=== PATIENT | female | born 1980 | race Caucasian/White ===

== ENCOUNTER 2021-01-20 22:08 | Emergency (ER) | payer SELFPAY ==
[2021-01-20 22:20] VITALS: BP 175/103; PULSE 132; RESP 20; TEMP 36.9; O2SAT 98; BMI 32.9
[2021-01-20 22:30] VITALS: PULSE 125; O2SAT 95
[2021-01-20 22:49] LABS: RBC Urine None Seen (0-5/HPF)
[2021-01-20 22:51] LABS: Add Manual Diff / Slide Review NO; Basophils Absolute Auto 100 /uL (0-100); Eosinophils Absolute Auto 100 /uL (0-450); Eosinophils Percent Auto 0.8 % (2-4); Hematocrit 36.1 % (36-46); Hemoglobin 11.6 g/dL (12.0-16.0); Lymphocytes Absolute Auto 1800 /uL (1100-4500); Lymphocytes Percent Auto 17.9 % (25-40); Mean Corpuscular Hemoglobin 26.2 PG (26-34); Mean Corpuscular Volume 81.9 fL (80-100); Monocytes Absolute Auto 700 /uL (0-900); Monocytes Percent Auto 7.2 % (3-14); Neutrophils Absolute Auto 7200 /uL (1500-7000); Neutrophils Percent Auto 73.1 % (50-75); Platelet Count 282 X10^3/uL (150-400); Red Blood Cell Count 4.41 X10^6/uL (4.0-5.2); Red Cell Distribution Width 19.7 % (11.6-14.8); White Blood Cell Count 9.9 X10^3/uL (4.5-11.0)
[2021-01-20 22:57] LABS: Bacteria Urine Occasional (0-1); Culture Indicated Urine Cult Not Indicated; Squamous Epithelial Cell Urine 1-5 /HPF (0-5/HPF); WBC Urine 1-5/HPF (0-5/HPF)
[2021-01-20 22:58] LABS: Albumin 4.3 g/dL (3.5-5.0); Albumin Globulin Ratio 1.5 (1.0-2.8); Alkaline Phosphatase 88 U/L (38-126); Aspartate Aminotransferase 39 IU/L (14-36); BUN Creatinine Ratio 13.1 (6-22); Bilirubin Total 0.2 mg/dL (0.2-1.3); Blood Urea Nitrogen 11 mg/dL (7-17); Calcium 9.5 mg/dL (8.4-10.2); Carbon Dioxide 22 mmol/L (22-32); Chloride 102 mmol/L (98-107); Estimated Glomerular Filt Rate > 60.0 mL/min (>60); Globulin 2.9 g/dL (1.7-4.1); Glucose 273 mg/dL (70-100); HEMOLYSIS < 15 (0-50); Lipase 74 U/L (23-300); Potassium 3.8 mmol/L (3.4-5.1); Sodium 134 mmol/L (137-145); Total Protein 7.2 g/dL (6.3-8.2)
[2021-01-20 23:00] VITALS: PULSE 115; O2SAT 95
[2021-01-20 23:15] VITALS: BP 175/103
[2021-01-20 23:16] LABS: Prothrombin Time 11.3 SECONDS (10.1-12.7)
[2021-01-20 23:18] LABS: PTT Partial Thromboplastin Tim 32 SECONDS (26.4-36.2)
[2021-01-20 23:18] LABS: Alanine Aminotransferase 49 IU/L (<35)
[2021-01-20 23:30] VITALS: PULSE 105; O2SAT 96
--- NOTE | 2021-01-20 23:37 | DI.CT.S_ITS ---
PROCEDURE: CT ABDOMEN PELVIS W CON INDICATIONS: RLQ pain worsening over 24hrs TECHNIQUE: After the administration of intravenous contrast, 5 mm thick sections acquired from the diaphragm to the symphysis. 5 mm coronal and sagittal reformats were acquired. For radiation dose reduction, the following was used: automated exposure control, adjustment of mA and/or kV according to patient size. COMPARISON: None. FINDINGS: ABDOMEN: Lung bases: Normal Solid organs: Hepatic steatosis. Gallbladder: Negative Biliary system: Normal Pancreas: Normal Spleen: Normal Adrenal glands: Normal Kidneys: Normal Ureters: Normal Peritoneum and bowel: Stomach: Normal There are mild fluid-filled right lower quadrant small bowel loops however no transition point is seen. A presumed small duodenal diverticulum on image 42/2. No free fluid or air. Appendix is not clearly identified however no suspicious pericecal inflammatory changes are seen.It is probably surgically absent given the appearance on image 77/2. Lymph nodes and vessels: Abdominal nodes: Normal Aorta and IVC: Normal Miscellaneous: Ventral wall: Normal PELVIS: Genitourinary: Bladder is distended otherwise unremarkable. Miscellaneous: Inguinal: Normal Pelvic nodes: Normal Bones: No vertebral body compression fracture. Spondylytic changes and facet arthropathy. IMPRESSION: Appendix not seen probably surgically absent. Elsewhere, no inflammatory changes seen in the right lower quadrant. Hepatic steatosis. Findings concordant with the preliminary study interpretation provided at the time of the exam. Dictated by: Favian Carmichael M.D. on 01/21/2021 at 8:20 Approved by: Favian Carmichael M.D. on 01/21/2021 at 8:28
[2021-01-20] MEDS: HYDROMORPHONE 0.5 MG INJ IV (23:44)
[2021-01-20] MEDS: ONDANSETRON 4 MG/2 ML INJ IV (23:47)
[2021-01-21] VITALS (13 sets, daily range): BP systolic 117–190; BP diastolic 70–97; PULSE 110–128; RESP 20; TEMP 36.4; O2SAT 90–96
[2021-01-21] MEDS: HYDROMORPHONE 1 MG INJ 2 MG IM (00:10)
--- NOTE | 2021-01-21 00:25 | ED_ITS ---
HPI - Abdominal Pain General Chief Complaint: Abdominal Pain Stated Complaint: vomiting and abdominal pain Time Seen by Provider: 01/20/21 23:04 Source: patient Mode of arrival: Ambulatory Limitations: no limitations History of Present Illness HPI narrative: 40-year-old woman with no significant medical history presents with 24 hours of nausea vomiting and increasing abdominal pain initially periumbilical in nail localizing to the right lower quadrant. She has had a history of ovarian cysts and had a laparoscopic surgery a number years ago and may have had an appendectomy with that surgery but she is not entirely clear. She does not describe fevers, chills, cough,palpitations or headaches. She does note that she is slightly dizzy when she stands up and states that she feels she is somewhat dehydrated Related Data Allergies Allergy/AdvReac Type Severity Reaction Status Date / Time NSAIDS (Non-Steroidal Allergy Severe Swelling Verified 01/20/21 22:20 Anti-Inflamma of Lip/Tongue/Throat Penicillins Allergy Intermediate Hives Verified 01/20/21 22:20 Review of Systems Review of Systems Narrative: All systems reviewed and are unremarkable except as noted in the HPI Patient History Medical History (Updated 01/21/21 @ 03:21 by Nina Rey MD) Ovarian cyst Social History Smoking Status: Never smoker Smoking Status: Never smoker alcohol intake frequency: 0-2 drinks per day Exam Narrative Exam Narrative: General: He in moderate distress. Able to give a complete and coherent history. Well-nourished well-developed HEENT: Dry mucous membranes, normal sclera with reactive pupils, Respiratory: Lungs are clear to auscultation, no wheezing no rales no rhonchi. Full and symmetrical air movement Cardiac: Regular rate and rhythm no murmurs no bruits Abdomen: Soft, very tender in the right lower quadrant without rebound or guarding good bowel tones, no flank pain Skin: Warm and dry, no rashes Neurologic: Grossly neurologically intact with no obvious asymmetries or abnormalities Extremities: No trauma, well perfused Psych: Cooperative, appropriate insight and affect Initial Vital Signs Initial Vital Signs: Vital Signs Temperature 98.4 F 01/20/21 22:20 Pulse Rate 132 H 01/20/21 22:20 Respiratory Rate 20 01/20/21 22:20 Blood Pressure 175/103 H 01/20/21 22:20 Pulse Oximetry 98 01/20/21 22:20 Course Orders Ordered: ED Orders 01/20/21 22:15 EKG-12 Lead Routine 01/20/21 22:24 Urine Microscopic Stat 01/20/21 22:40 Complete Blood Count AUTO DIFF Stat Comprehensive Metabolic Panel Stat Lipase Stat 01/20/21 23:00 Partial Thromboplastin Time Stat Prothrombin Time INR Stat 01/20/21 23:37 CT abdomen pelvis w con Stat 01/20/21 23:47 COVID19 - ADMIT (CORPORATE RESPONSIBILITY OFFICER swab/PCR) Stat Hydromorphone HCl (Hydromorphone 0.5 Mg Inj) 0.5 mg IV Q15MIN PRN PRN Reason: Pain, Last Admin: 01/21/21 01:16 Dose: 0.5 mg Documented by: Admin: 01/20/21 23:44 Dose: 0.5 mg Documented by: ERIC Ondansetron HCl (Ondansetron 4 Mg Odt Prepack) 1 bottle MISC SEEINSTR ONE Stop: 01/21/21 03:22 Discontinued Medications Diphenhydramine HCl (Diphenhydramine 50 Mg/Ml Vial) 50 mg IV NOW ONE Stop: 01/21/21 00:32 Last Admin: 01/21/21 00:34 Dose: 50 mg Documented by: AVA Hydromorphone HCl (Hydromorphone 1 Mg Inj) 2 mg IM NOW ONE Stop: 01/21/21 00:01 Last Admin: 01/21/21 00:10 Dose: 2 mg Documented by: ERIC Sodium Chloride (Normal Saline 0.9%) 1,000 mls @ 1,000 mls/hr IV BOLUS ONE Stop: 01/21/21 00:34 Last Infusion: 01/21/21 01:30 Dose: 0 mls/hr Documented by: Admin: 01/21/21 00:36 Dose: 1,000 mls/hr Documented by: AVA Sodium Chloride (Normal Saline 0.9%) 1,000 mls @ 1,000 mls/hr IV BOLUS ONE Stop: 01/21/21 02:01 Last Infusion: 01/21/21 02:38 Dose: 0 mls/hr Documented by: Admin: 01/21/21 01:30 Dose: 1,000 mls/hr Documented by: ERIC Ondansetron HCl (Ondansetron 4 Mg/2 Ml Inj) 4 mg IV NOW ONE Stop: 01/20/21 23:36 Last Admin: 01/20/21 23:47 Dose: 4 mg Documented by: ERIC Ondansetron HCl (Ondansetron 4 Mg/2 Ml Inj) 4 mg IV NOW ONE Stop: 01/21/21 00:38 Last Admin: 01/21/21 02:34 Dose: Not Given Documented by: ERIC Vital Signs Vital signs: Vital Signs - 8 hr 01/20/21 22:20 01/20/21 22:30 01/20/21 23:00 Temperature 98.4 F Pulse Rate 132 H 125 H 115 H Respiratory Rate 20 Blood Pressure 175/103 H Pulse Oximetry 98 95 95 01/20/21 23:15 01/20/21 23:30 01/21/21 00:00 Temperature Pulse Rate 105 H 110 H Respiratory Rate Blood Pressure 175/103 H Pulse Oximetry 96 94 01/21/21 00:32 01/21/21 00:33 01/21/21 00:37 Temperature Pulse Rate 119 H 121 H 115 H Respiratory Rate Blood Pressure 190/89 H 165/92 H Pulse Oximetry 92 92 94 01/21/21 01:00 01/21/21 01:01 01/21/21 01:14 Temperature Pulse Rate 113 H 114 H 128 H Respiratory Rate Blood Pressure 139/91 H 154/97 H Pulse Oximetry 91 94 91 01/21/21 01:30 01/21/21 01:31 01/21/21 02:00 Temperature Pulse Rate 113 H 111 H 115 H Respiratory Rate Blood Pressure 130/70 117/86 Pulse Oximetry 90 L 90 L 91 01/21/21 02:30 01/21/21 02:32 Temperature Pulse Rate 116 H 113 H Respiratory Rate Blood Pressure 130/81 Pulse Oximetry 96 95 MDM - Abdominal Pain Medical Records Attestation: I reviewed the patient's medical records. Lab Data Attestation: I reviewed the patient's lab results. Result diagrams: 01/20/21 22:40 01/20/21 22:40 Labs: Lab Results 03/14/21 03/14/21 03/14/21 Range/Units 22:24 22:40 22:40 WBC 9.9 (4.5-11.0) X10^3/uL RBC 4.41 (4.0-5.2) X10^6/uL Hgb 11.6 L (12.0-16.0) g/dL Hct 36.1 (36-46) % MCV 81.9 (80-100) fL MCH 26.2 (26-34) PG MCHC 32.0 (30-36) % RDW 19.7 H (11.6-14.8) % Plt Count 282 (150-400) X10^3/uL Neut % (Auto) 73.1 (50-75) % Lymph % (Auto) 17.9 L (25-40) % [place] % (Auto) 7.2 (3-14) % Eos % (Auto) 0.8 L (2-4) % Baso % (Auto) 1.0 (0-2) % Neut # (Auto) 7200 H (7491-6297) /uL Lymph # (Auto) 1800 (0683-4386) /uL [place] # (Auto) 700 (0-900) /uL Eos # (Auto) 100 (0-450) /uL Baso # (Auto) 100 (0-100) /uL PT (10.1-12.7) SECONDS INR (0.9-1.3) APTT (26.4-36.2) SECONDS Sodium 134 L (137-145) mmol/L Potassium 3.8 (3.4-5.1) mmol/L Chloride 102 (98-107) mmol/L Carbon Dioxide 22 (22-32) mmol/L BUN 11 (7-17) mg/dL Creatinine 0.84 (0.52-1.04) mg/dL Estimated GFR > 60.0 (>60) mL/min BUN/Creatinine Ratio 13.1 (6-22) Glucose 273 H (70-100) mg/dL Calcium 9.5 (8.4-10.2) mg/dL Total Bilirubin 0.2 (0.2-1.3) mg/dL AST 39 H (14-36) IU/L ALT 49 H (<35) IU/L Alkaline Phosphatase 88 (38-126) U/L Total Protein 7.2 (6.3-8.2) g/dL Albumin 4.3 (3.5-5.0) g/dL Globulin 2.9 (1.7-4.1) g/dL Albumin/Globulin Ratio 1.5 (1.0-2.8) Lipase 74 (23-300) U/L Urine RBC None seen (0-5/HPF) Urine WBC 1-5/hpf (0-5/HPF) Ur Squamous Epith Cells 1-5 /hpf (0-5/HPF) Urine Bacteria Occasional (0-1) (None) Ur Culture Indicated? Cult not indicated SARS-CoV-2 (PCR) (Negative) 01/20/21 01/21/21 Range/Units 23:00 00:20 WBC (4.5-11.0) X10^3/uL RBC (4.0-5.2) X10^6/uL Hgb (12.0-16.0) g/dL Hct (36-46) % MCV (80-100) fL MCH (26-34) PG MCHC (30-36) % RDW (11.6-14.8) % Plt Count (150-400) X10^3/uL Neut % (Auto) (50-75) % Lymph % (Auto) (25-40) % [place] % (Auto) (3-14) % Eos % (Auto) (2-4) % Baso % (Auto) (0-2) % Neut # (Auto) (7495-1554) /uL Lymph # (Auto) (3306-5589) /uL [place] # (Auto) (0-900) /uL Eos # (Auto) (0-450) /uL Baso # (Auto) (0-100) /uL PT 11.3 (10.1-12.7) SECONDS INR 1.0 (0.9-1.3) APTT 32 (26.4-36.2) SECONDS Sodium (137-145) mmol/L Potassium (3.4-5.1) mmol/L Chloride (98-107) mmol/L Carbon Dioxide (22-32) mmol/L BUN (7-17) mg/dL Creatinine (0.52-1.04) mg/dL Estimated GFR (>60) mL/min BUN/Creatinine Ratio (6-22) Glucose (70-100) mg/dL Calcium (8.4-10.2) mg/dL Total Bilirubin (0.2-1.3) mg/dL AST (14-36) IU/L ALT (<35) IU/L Alkaline Phosphatase (38-126) U/L Total Protein (6.3-8.2) g/dL Albumin (3.5-5.0) g/dL Globulin (1.7-4.1) g/dL Albumin/Globulin Ratio (1.0-2.8) Lipase (23-300) U/L Urine RBC (0-5/HPF) Urine WBC (0-5/HPF) Ur Squamous Epith Cells (0-5/HPF) Urine Bacteria (None) Ur Culture Indicated? SARS-CoV-2 (PCR) Negative (Negative) Point of care testing: Point of Care Testing Test Results Negative Urine Dip Bedside Urine Glucose 500 mg/dl Bedside Urine Bilirubin - Negative Bedside Urine Ketone - Negative Urine Specific [place] 1.025 Bedside Urine Occult Blood - Negative Bedside Urine pH 6.0 Bedside Urine Protein - Negative Bedside Urine Urobilinogen - Negative Bedside Urine Nitrite - Negative Bedside Urine Leukocytes - Negative Esterase Imaging Data CT scan - abdomen/pelvis: Radiologist's Impression: Post appendectomy No adnexal abnormality No significant free fluid or adenopathy noted in the pelvis Impression: No acute process Zacarias Mcallister MD ECG Data Attestation: I personally reviewed and interpreted this ECG as follows: Interpretation: Sinus tachycardia at a rate of [address]-T wave changes Normal axis MDM Narrative Medical decision making narrative: 40-year-old woman presents with nausea vomiting and abdominal pain. Exceptionally difficult to get an IV started due to significant dehydration. Blood sugar was elevated at 273 without a diagnosis of diabetes. No anion gap to suggest DKA. No evidence of overwhelming infection, pyelonephritis, appendicitis (she is, in fact, post appendectomy), diverticulitis or other significant surgical pathology. Will continue with hydration and nausea control and re-evaluation after she has been hydrated enough to need to spontaneously void. 320am tachycardia has improved with fluid resuscitation. Nausea is moderately controlled. Abdominal pain is minimal. No evidence of sepsis, overwhelming infection, appendicitis or diverticulitis or ovarian cysts. She is safe for home discharge Discharge Plan Departure Patient Disposition: Home Clinical Impression: Elevated blood sugar, Acute dehydration Nausea & vomiting Qualifiers: Vomiting type: unspecified Vomiting Intractability: non-intractable Qualified Code(s): R11.2 - Nausea with vomiting, unspecified Instructions: Nausea and Vomiting-Adult Activity Restrictions/Additional Instructions: Thank you for coming in today You were significantly dehydrated and received 2 L of fluid. Your lab work was very reassuring. There is no evidence of acute infection or renal failure. Your CT scan did not show any acute findings in your abdomen and no indication for surgical intervention You have in fact had your appendix removed at some point in the past You can use the ondansetron every 8 hours to help with nausea if it continues If you find that you are worsening, please return. I hope your time in the [facility] goes well
[2021-01-21] MEDS: diphenhydrAMINE 50 MG/ML VIAL IV (00:34)
[2021-01-21] MEDS: SODIUM CHLORIDE 0.9% 1,000 ML 1000 ML IV ×2 (00:36→01:30)
[2021-01-21] MEDS: HYDROMORPHONE 0.5 MG INJ IV (01:16)
[2021-01-21 01:24] LABS: COVID19 - ADMIT (NP swab/PCR) Negative (Negative)
[2021-01-21] MEDS: ONDANSETRON 4 MG ODT PREPACK 1 BOTTLE MISC (03:30)
== END 2021-01-21 03:31 | disposition home or self-care (01) ==
PROVIDERS: Emergency Provider Emergency Medicine
DX: R73.9 Hyperglycemia, unspecified (principal); E86.0 Dehydration; R11.2 Nausea with vomiting, unspecified; R00.0 Tachycardia, unspecified; Z20.822 Contact with and (suspected) exposure to COVID-19
CPT/HCPCS: 36415; 74177; 80053; 81003; 81015; 81025; 83690; 85025; 85610; 85730; 87635; 93005; 93010; 96361; 96372; 96374; 96375; 96376; 99284; J1170; J1200; J2405; Q9967